=== PATIENT | female | born 1955 | race Two or more races ===

== ENCOUNTER 2018-01-12 13:43 | Inpatient (IN) | payer MEDICARE, OTHER ==
[~2018-01-12] VITALS: Ht 165.1 cm; Wt 80.6 kg
[~2018-01-12 13:43] MED LIST: METH2.5T3; PANTOPRAZOLE; SIMVISTATIN
[2018-01-12 14:35] LABS: Eosinophils # (auto) 0.2 uL; Monocytes # (auto) 0.5 uL; White Blood Cell 6.2 10^3/uL (4.4-10.8)
[2018-01-12 14:36] LABS: Basophils # (auto) 0 uL; Basophils % (auto) 0.7 % (0.0-2.0); Eosinophils % (auto) 3.4 % (0.0-7.0); Hemoglobin 12.5 g/dL (12.2-16.2); Lymphocytes % (auto) 15.8 % (10.0-50.0); Mean Corpuscular Hemoglobin 26.7 pg (28.0-32.0); Mean Corpuscular Hgb Conc. 32.8 g/dL (32.0-36.0); Mean Corpuscular Volume 81.3 fL (80.0-100.0); Neutrophils # (auto) 4.5 uL; Neutrophils % (auto) 72.1 % (37.0-80.0); Nucleated Red Blood Cells % 0.1 %; Platelet Count (auto) 329 10^3/uL (140-450); Red Blood Cells 4.67 10^6/uL (4.0-5.20); Red Cell Distribution Width 16.6 % (11.8-14.3)
[2018-01-12 14:48] LABS: Urine Bacteria NONE SEEN /hpf (None Seen); Urine Blood Negative /uL (Negative); Urine Mucus FEW (None Seen); Urine Specific Gravity 1.026 (1.001-1.035); Urine WBC <1 /hpf (0 - 5)
[2018-01-12 14:54] LABS: Albumin 3.2 g/dL (3.4-5.0); BUN/Creatinine Ratio 18.8; Bilirubin, Total 0.4 mg/dL (0.2-1.0); Calcium 8.8 mg/dL (8.5-10.1); Potassium 3.9 mmol/L (3.5-5.1); Total Protein 8.1 g/dL (6.4-8.2)
[2018-01-13] MEDS ORDERED: metroNIDAZOLE 500 MG TAB PO ONE (00:30)
[2018-01-13] MEDS ORDERED: MORPHINE SULFATE 4 MG/ML SYR/VIAL IV ONE (00:30)
[2018-01-13] MEDS ORDERED: ONDANSETRON HCL 4 MG/2 ML VIAL IV ONE (00:30)
[2018-01-13] MEDS ORDERED: cefTRIAXone 1GM/10ml IVPUSH 10 ML IV ONE ×2 (00:30→06:15)
[2018-01-13] MEDS ORDERED: diphenhdrAMINE HCL 50 MG/1 ML VL IV ONE (02:30)
[2018-01-13] MEDS ORDERED: SODIUM CHLORIDE 0.9% 1,000 ML IV SCH (04:30)
[2018-01-13] MEDS ORDERED: ONDANSETRON HCL 4 MG/2 ML VIAL IV PRN (04:30)
[2018-01-13] MEDS ORDERED: ACETAMINOPHEN 500 MG TAB PO PRN (04:30)
[2018-01-13] MEDS ORDERED: HYDROcodone-ACET 5/325MG TAB PO PRN (04:30)
[2018-01-13] MEDS ORDERED: MORPHINE SULFATE 4 MG/ML SYR/VIAL IV PRN (05:45)
[2018-01-13] MEDS ORDERED: DEXTROSE (50%) 50ML SYRG IV PRN (05:45)
[2018-01-13 05:50] VITALS: BP 131/64
[2018-01-13] MEDS ORDERED: LISI-646 PO (07:16)
[2018-01-13] MEDS ORDERED: SIMV-13 PO (07:16)
[2018-01-13] MEDS ORDERED: GABA-339 PO (07:16)
[2018-01-13] MEDS: InsuLIN REG 1unit/0.01ml Soln (100units/ml) SC SCH ×2 (07:53→12:06)
[2018-01-13] MEDS: ACCU-CHEK COMFORT CURVE STRIP VI SCH ×2 (07:54→12:07)
[2018-01-13 09:00] VITALS: BP 113/55
[2018-01-13] MEDS ORDERED: PANTOPRAZOLE 40 MG/10 ML VIAL IV SCH (10:00)
[2018-01-13 13:00] VITALS: BP 119/59
[2018-01-13 13:37] VITALS: BP 113/55
== END 2018-01-13 15:45 | disposition home or self-care (01) | DRG 389 ==
LOC: ER 13:43 → OVERFLOW 13:44 → EAST 01-13 05:01 → WEST WING 01-13 05:22
PROVIDERS: ADMIT Nurse Practitioner Family; ATTEND Family Medicine
DX: K56.7 Ileus, unspecified (principal); K57.32 Diverticulitis of large intestine without perforation or abscess without bleeding; E11.65 Type 2 diabetes mellitus with hyperglycemia; K76.0 Fatty (change of) liver, not elsewhere classified; K57.30 Diverticulosis of large intestine without perforation or abscess without bleeding; I10 Essential (primary) hypertension; Z88.8 Allergy status to other drugs, medicaments and biological substances; Z79.4 Long term (current) use of insulin
CPT/HCPCS: 36415; 74176; 80053; 81001; 82150; 82962; 83036; 83690; 85025; 93005; 96374; 96375; C9113; J1815; J2405

== ENCOUNTER 2024-02-26 16:10 | Emergency (ER) | payer OTHER ==
[~2024-02-26] VITALS: Ht 154.9 cm; Wt 89.0 kg
[~2024-02-26 16:10] MED LIST changes: +GABA-339 PO; +LISI20TA56 PO; +METH2.5T; -METH2.5T3; -PANTOPRAZOLE; +SIMV40TA18 PO
[2024-02-26 16:44] LABS: Hematocrit 37.5 % (36.0-46.0); Hemoglobin 12.4 g/dL (12.2-16.2); Mean Corpuscular Hemoglobin 30.1 pg (28.0-32.0); Mean Corpuscular Volume 91.2 fL (80.0-100.0); Red Blood Cells 4.11 10^6/uL (4.0-5.20); Red Cell Distribution Width 15.5 % (11.8-14.3); White Blood Cell 6.6 10^3/uL (4.4-10.8)
[2024-02-26 16:52] LABS: Band Neutrophils % (manual) 0; Basophils % (manual) 0 (0.0-2.0); Blast Cells 0; Metamyelocytes % 0; Myelocytes % 0; Promyelocytes % 0; Reactive Lymphocytes 0
[2024-02-26 17:04] LABS: Alanine Aminotransferase 32 U/L (7-40); Albumin 4.1 g/dL (3.2-4.8); Alkaline Phosphatase 108 U/L (46-116); Anion Gap 7 (5-15); Aspartate Aminotransferase 32 U/L (13-40); BUN/Creatinine Ratio 22.9 (10.0-20.0); Bilirubin, Total 0.4 mg/dL (0.2-1.0); Blood Urea Nitrogen 19 mg/dL (9-23); Calcium 9.9 mg/dL (8.5-10.1); Carbon Dioxide 28 mmol/L (20-30); Chloride 104 mmol/L (98-107); Glucose 107 mg/dL (74-106); Potassium 4.7 mmol/L (3.5-5.1); Sodium 139 mmol/L (136-145); Total Protein 6.6 g/dL (5.7-8.2)
[2024-02-26 18:52] LABS: Eosinophils % (manual) 22 (0-7); Lymphocytes % (manual) 31 (10.0-50.0); Monocytes % (manual) 6 (0-12); Platelet Estimate Adequate
[2024-02-26] MEDS: ASPirin 81 mg TAB PO ONE (20:20)
[2024-02-26 20:26] VITALS: BP 173/54; PULSE 75; RESP 19; O2SAT 99
== END 2024-02-26 20:25 | disposition home or self-care (01) ==
LOC: ER 16:10
DX: R07.89 Other chest pain (principal); I10 Essential (primary) hypertension; E11.9 Type 2 diabetes mellitus without complications; E78.5 Hyperlipidemia, unspecified; M19.90 Unspecified osteoarthritis, unspecified site; Z98.890 Other specified postprocedural states; Z88.8 Allergy status to other drugs, medicaments and biological substances; Z79.899 Other long term (current) drug therapy
CPT/HCPCS: 36415; 71046; 80053; 84484; 85007; 85027; 93005